=== PATIENT | male | born 1980 | race Caucasian/White ===

== ENCOUNTER → 2017-08-31 | Outpatient (REF) | payer OTHER ==
[2017-08-31 21:14] LABS: ALBUMIN 4.3 GM/DL (3.2-5.2); ALKALINE PHOSPHATASE 163 U/L (45-117); ALT/SGPT 60 U/L (12-78); ANION GAP 6 MEQ/L (8-16); AST/SGOT 27 U/L (7-37); BILIRUBIN,TOTAL 0.3 MG/DL (0.2-1.0); BLOOD UREA NITROGEN 10 MG/DL (7-18); CARBON DIOXIDE LEVEL 27 MEQ/L (21-32); CHLORIDE LEVEL 108 MEQ/L (98-107); CHOLESTEROL LEVEL 226 MG/DL (<200); CHOLESTEROL RISK RATIO 5.022 (<5); CREATININE FOR GFR 0.95 MG/DL (0.70-1.30); ESTIMATED AVERAGE GLUCOSE 123 MG/DL (60-110); GLOMERULAR FILTRATION RATE > 60.0 (>60); GLUCOSE, FASTING 109 MG/DL (70-100); HDL CHOLESTEROL 45 MG/DL (>40); HEMOGLOBIN A1c 5.9 %; LDL CHOLESTEROL 150.6 MG/DL (<100); NON-HDL-C 181 MG/DL; POTASSIUM SERUM 4.2 MEQ/L (3.5-5.1); SODIUM LEVEL 141 MEQ/L (136-145); TOTAL PROTEIN 7.6 GM/DL (6.4-8.2); TRIGLYCERIDES LEVEL 152 MG/DL (<150)
[2017-08-31 21:26] LABS: MALB URINE SIEMENS 6.3 MG/L; MAU/CREAT RATIO 4.3 MCG/MG (0.0-30.0)
== END ==
LOC: M SFHCADAM 15:54
DX: E78.4 Other hyperlipidemia (principal); R73.01 Impaired fasting glucose; I10 Essential (primary) hypertension
CPT/HCPCS: 83036

== ENCOUNTER → 2018-12-28 | Outpatient (REF) | payer OTHER ==
[~2018-12-28] MED LIST: AMOX500C PO; ASPI81TA85 PO; ATEN50TA2 PO; ATOR1TAB21 PO; BACL1TAB9 PO; CRES5TAB PO; DOXY100C PO; FLEX10TA2 PO; FLON0.054; GABA-845 PO; GABA300C2 PO; HYDR-2808 PO; HYDR-3713 PO; LIDO1DIS2 TD; LISI5TAB PO; LORA10TA2 PO; MOBI15TA PO; NAPR500T2 PO; NEUR400C PO; NEUR600T PO; NICO21DI6 TD; NORCOBULK PO; OMEP40CA2 PO; OSEL75CA PO; PAXI20TA3 PO; PAXI40TA2 PO; PRED20TA PO; PRED20TAB PO; QUIN200T PO; QUININE PO; RANI1TAB17 PO; REQU1TAB14 PO; ROPI0.5T PO; ROPI25TA PO; SOMA350T PO; TRAM100T13 PO; TRAM37.5 PO; TRAZ50TA2 PO; TYLE325T5 PO; VENL37CA PO; VICO5TAB17 PO; VITA100037 PO; ZANA4TAB PO; ZETI10TA21 PO; ZONE1CAP PO; ZONI50CA3 PO; ZYRT10CA PO; [UNRECOGNIZED DRUG - CODE] XX; motrin PO
== END ==
LOC: M LAB REF 12:14
PROVIDERS: ATTEND Physician Assistant Medical
DX: J02.9 Acute pharyngitis, unspecified (principal)

== ENCOUNTER → 2019-11-22 | Outpatient (REF) | payer OTHER ==
[~2019-11-22] MED LIST changes: +ZONI50CA11 PO; -ZONI50CA3 PO
[2019-11-22 17:03] LABS: HEMATOCRIT 49.5 % (42.0-52.0); MEAN CORPUSCULAR HEMOGLOBIN 33.9 pg (27.0-33.0); MEAN CORPUSCULAR HGB CONC 34.3 g/dl (32.0-36.5); MEAN CORPUSCULAR VOLUME 98.6 fl (80.0-96.0); PLATELET COUNT, AUTOMATED 274 10^3/uL (150-450); RED BLOOD COUNT 5.02 10^6/uL (4.30-6.10); WHITE BLOOD COUNT 6.6 10^3/uL (4.0-10.0)
[2019-11-22 17:13] LABS: ALBUMIN 4.1 GM/DL (3.2-5.2); ALT/SGPT 71 U/L (12-78); BILIRUBIN,TOTAL 0.2 MG/DL (0.2-1.0); BLOOD UREA NITROGEN 13 MG/DL (7-18); CALCIUM LEVEL 9.2 MG/DL (8.5-10.1); CARBON DIOXIDE LEVEL 28 MEQ/L (21-32); CHLORIDE LEVEL 106 MEQ/L (98-107); CHOLESTEROL LEVEL 229 MG/DL (<200); CHOLESTEROL RISK RATIO 4.673 (<5); CREATININE FOR GFR 1.02 MG/DL (0.70-1.30); FREE T4 0.99 NG/DL (0.76-1.46); GLOMERULAR FILTRATION RATE > 60.0 (>60); GLUCOSE, FASTING 98 MG/DL (70-100); HDL CHOLESTEROL 49 MG/DL (>40); LDL CHOLESTEROL 152 MG/DL (<100); NON-HDL-C 180 MG/DL; POTASSIUM SERUM 4.7 MEQ/L (3.5-5.1); SODIUM LEVEL 140 MEQ/L (136-145); TOTAL PROTEIN 7.4 GM/DL (6.4-8.2); TRIGLYCERIDES LEVEL 141 MG/DL (<150)
[2019-11-22 17:17] LABS: TOTAL 25(OH) VITAMIN D 17.2 NG/ML (30.0-100.0)
[2019-11-22 17:23] LABS: HEMOGLOBIN A1c 5.4 %
== END ==
LOC: M SFHCADAM 12:08
PROVIDERS: ATTEND Physician Assistant
DX: K21.9 Gastro-esophageal reflux disease without esophagitis (principal); G43.009 Migraine without aura, not intractable, without status migrainosus; F17.210 Nicotine dependence, cigarettes, uncomplicated; R76.8 Other specified abnormal immunological findings in serum; E55.9 Vitamin D deficiency, unspecified; R73.09 Other abnormal glucose

== ENCOUNTER 2020-09-28 16:02 | Emergency (ER) | payer OTHER ==
[~2020-09-28] VITALS: Ht 177.8 cm; Wt 98.6 kg
[~2020-09-28 16:02] MED LIST changes: +ASPI81TA86 PO
--- OUTSIDE RECORDS SUMMARY | 2020-09-28 16:09 | CCD ---
Author Author [facility] Organization [facility] Address Unknown Phone Unavailable Care Team Providers Care Senior Marketing Data Analyst Name Role Phone Maring, José PA Unavailable Unavailable Maring, José PA Unavailable Unavailable Maring, Joés PA Unavailable Unavailable Maring, José PA Unavailable Unavailable Maring, José PA Unavailable Unavailable Maring, José PA Unavailable Unavailable Maring, José PA Unavailable Unavailable Maring, José PA Unavailable Unavailable Maring, José PA Unavailable Unavailable Maring, José PA Unavailable Unavailable Maring, José PA Unavailable Unavailable Maring, José PA Unavailable Unavailable Maring, José PA Unavailable Unavailable Maring, José PA Unavailable Unavailable LETTIERE, A BELLA PA Unavailable Unavailable LETTIERE, A BELLA PA Unavailable Unavailable LETTIERE, A BELLA PA Unavailable Unavailable LETTIERE, A BELLA PA Unavailable Unavailable LETTIERE, A BELLA PA Unavailable Unavailable LETTIERE, A BELLA PA Unavailable Unavailable LETTIERE, A BELLA PA Unavailable Unavailable LETTIERE, A BELLA PA Unavailable Unavailable LETTIERE, A BELLA PA Unavailable Unavailable LETTIERE, A BELLA PA Unavailable Unavailable LETTIERE, A BELLA PA Unavailable Unavailable LETTIERE, A BELLA PA Unavailable Unavailable LETTIERE, A BELLA PA Unavailable Unavailable LETTIERE, A BELLA PA Unavailable Unavailable LETTIERE, A BELLA PA Unavailable Unavailable LETTIERE, A BELLA PA Unavailable Unavailable LETTIERE, A BELLA PA Unavailable Unavailable LETTIERE, A BELLA PA Unavailable Unavailable LETTIERE, A BELLA PA Unavailable Unavailable LETTIERE, A BELLA PA Unavailable Unavailable LETTIERE, A BELLA PA Unavailable Unavailable LETTIERE, A BELLA PA Unavailable Unavailable LETTIERE, A BELLA PA Unavailable Unavailable LETTIERE, A BELLA PA Unavailable Unavailable LETTIERE, A BELLA PA Unavailable Unavailable LETTIERE, A BELLA PA Unavailable Unavailable LETTIERE, A BELLA PA Unavailable Unavailable LETTIERE, A BELLA PA Unavailable Unavailable LETTIERE, A BELLA PA Unavailable Unavailable Re-disclosure Warning The records that you are about to access may contain information from federally-assisted alcohol or drug abuse programs. If such information is present, then the following federally mandated warning applies: This information has been disclosed to you from records protected by federal confidentiality rules (42 CFR part 2). The federal rules prohibit you from making any further disclosure of this information unless further disclosure is expressly permitted by the written consent of the person to whom it pertains or as otherwise permitted by 42 CFR part 2. A general authorization for the release of medical or other information is NOT sufficient for this purpose. The Federal rules restrict any use of the information to criminally investigate or prosecute any alcohol or drug abuse patient.The records that you are about to access may contain highly sensitive health information, the redisclosure of which is protected by Article 27-F of the [facility] Public Health law. If you continue you may have access to information: Regarding HIV / AIDS; Provided by facilities licensed or operated by the [facility] Office of Mental Health; or Provided by the [facility] Office for People With Developmental Disabilities. If such information is present, then the following [facility] mandated warning applies: This information has been disclosed to you from confidential records which are protected by state law. State law prohibits you from making any further disclosure of this information without the specific written consent of the person to whom it pertains, or as otherwise permitted by law. Any unauthorized further disclosure in violation of state law may result in a fine or fdc sentence or both. A general authorization for the release of medical or other information is NOT sufficient authorization for further disc losure. Allergies and Adverse Reactions Type Description Substance Reaction Status Data Source(s ) Drug allergy Keflex Cephalexin Nausea/Vomiting Active eCW1 ( [facility]) metal metal metal Rash Active eCW1 ([facility]) Family History Family Member Name Family Member Gender Family Member Status Date o f Status Description Data Source(s) Unknown Unknown Problem MEDENT ([facility]) Unknown Female Diagnosis 04/20/2017 12:00:00 AM EDT NextGen ([facility]) Unknown Female Diagnosis 04/20/2017 12:00:00 AM EDT NextGen ([facility]) Unknown Female Diagnosis 11/21/2016 12:00:00 AM EDT NextGen ([facility]) Unknown Female Diagnosis 11/21/2016 12:00:00 AM EDT NextGen ([facility]) Unknown Male Problem MEDENT ([facility] () Unknown Unknown Problem MEDENT ([facility] ) Unknown Unknown Problem MEDENT ([facility], ) Unknown Unknown Problem MEDENT ([facility], ) Unknown Unknown Problem MEDENT ([facility], ) Unknown Unknown Problem MEDENT ([facility], ) Unknown Unknown Problem MEDENT ([facility], ) Encounters Encounter Providers Location Date Indications Data Source(s ) Outpatient Attender: José JACOME 09/19/19 06:20:57 PM EST - 09/19/2020 06:51:56 PM EST DocuTap ([facility] ) Outpatient Attender: BELLA alicea 08/06/2020 07:10:00 AM EST MEDENT ([facility]) Unknown [address] [facility] [place] [address] 02/17/2020 12:00:00 AM EDT [facility] [place] [place] [address] [facility] [place] [address] 12/20/2019 12:00:00 AM EDT [facility]CW[facility]) [facility] [place] [address] [facility] [place] [address] 11/22/2019 12:00:00 AM EDT eCW1 [facility]) [facility] [place] [address] [facility] [place] [address] 11/18/2019 12:00:00 AM EDT eCW1 ([facility]) [facility] [address] [facility] [place] [address] 10/30/2019 12:00:00 AM EDT eCW1 ([facility]) Medications Medication Brand Name Start Date Product Form Dose Route Admi nistrative Instructions Pharmacy Instructions Status Indications Reaction Description Data Source(s) 800 mg 09/20/2020 12:00:00 AM EST tablet 30 TAKE ONE TABLET BY MOUTH THREE TIMES A DAY FOR 10 DAYS TAKE ONE TABLET BY MOUTH THREE TIMES A DAY FOR 10 DAYS SOLD: 09/20/2020 [facility] Amoxicillin 875 MG / Clavulanate 125 MG Oral Tablet Am oxicillin/Clavulanate Potassium 08/06/2020 12:00:00 AM EST ORAL active MEDENT ([facility]) No Active Medications 08/06/2020 12:00:00 AM EST completed MEDENT ([facility]) 100 mg 11/23/2019 12:00:00 AM EDT capsule 60 TAKE ONE CAPSULE BY MOUTH TWICE A DAY TAKE ONE CAPSULE BY MOUTH TWICE A DAY SOLD: 11/24/2019 [facility] CPAP mask UNK 11/22/2019 12:00:00 AM EDT active CPAP mask eCW1 ([facility]) 50 mcg/actuation 11/22/2019 12:00:00 AM EDT spray,suspension 16 SPRAY 1 SPRAY IN EACH NOSTRIL ONCE DAILY (1 BOX WILL LAST 60 DAYS) SPRAY 1 SPRAY IN EACH NOSTRIL ONCE DAILY (1 BOX WILL LAST 60 DAYS) SOLD: 11/24/2019 [facility] CPAP mask UNK 11/22/2019 12:00:00 AM EDT active as directed eCW1 ([facility]) CPAP mask UNK 11/22/2019 12:00:00 AM EDT active as directed eCW1 ([facility]) CPAP mask UNK 11/07/2019 12:00:00 AM EDT active CPAP mask eCW1 ([facility]) CPAP mask UNK 11/07/2019 12:00:00 AM EDT active as directed eCW1 ([facility]) CPAP Machine UNK 11/07/2019 12:00:00 AM EDT activ e as directed eCW1 ([facility]) CPAP Machine UNK 11/07/2019 12:00:00 AM EDT activ e as directed eCW1 ([facility]) CPAP mask UNK 11/07/2019 12:00:00 AM EDT active as directed eCW1 ([facility]) CPAP Machine UNK 11/07/2019 12:00:00 AM EDT activ e as directed eCW1 ([facility]) CPAP Machine UNK 11/07/2019 12:00:00 AM EDT activ e CPAP Machine eCW1 ([facility]) Insurance Providers Payer name Policy type / Coverage type Policy ID Covered constitution party ID Covered constitution party's relationship to mccracken Policy Mccracken Plan Information UN COMMUNITY PLAN MCDO [id number] SP [id number] [place] [employer]. [id number] Self [id number] United [employer] [facility] Maintenance Organization (HMO) [id number] Self [id number] [employer] (HMO) [id number] Self [id number] [employer] Hmo Commercial [id number] Self [id number] [employer] Elise/MCR Health Maintenance Organization (HMO) [id number] Self [id number] [employer] Hmo Commercial [id number] Self [id number] [employer] Hmo Commercial [id number] Self [id number] [employer] Elise/MCR Health Maintenance Organization (HMO) [id number] Self [id number] United [employer] Maintenance Organization (HMO) [id number] Self [id number] United [employer]Community [employer] Maintenance Organization (HMO) [id number] Self [id number] [facility] I [id number] Self [id number] [employer] Elise/MCR Health Maintenance Organization (HMO) Self UNHC COMMUNITY PLAN MCDHMO [id number] SP [id number] United [employer]Community [employer] Maintenance Organization (HMO) Self BRITTNYE CLAIM ADMIN WORK O [id number] S [id number] [place] [employer](MCAID) O [id number] S [id number] BRITTNEY CLAIM ADMIN WORK COMP [id number] SP [id number] BRITTNEY CLAIM ADMIN WORK COMP [id number] SP [id number] BRITTNEY CLAIM ADMIN WORK COMP [id number] SP [id number] UNHC COMMUNITY PLAN MCDHMO [id number] SP [id number] BRITTNEY CLAIM ADMIN WORK COMP UNKNOWN SP UNKNOWN MARGARITO CLAIMS ADMIN NCA WC W [id number] Empl [id number] [facility] [id number] SP [id number] BRITTNEY CLAIM ADMIN WORK COMP [id number] SP [id number] BRITTNEY CLAIM ADMIN WORK COMP [id number] SP [id number] [employer] P [id number] S [id number] [facility] H O [id number] S [id number] BRITTNEY CLAIM ADMIN WORK P [id number] S [id number] BRITTNEY CLAIM ADMIN WORK COMP -- SP -- BRITTNEY CLAIM ADMIN WORK COMP UNAVAILABLE SP UNAVAILABLE [facility] I [id number] Self [id number] [employer] I [id number] Self [id number] BRITTNEY CLAIM ADMIN WORK P [id number] S [id number] [employer] P [id number] S [id number] BRITTNEY CLAIMS [id number] SP [id number] BLUE CROSS JOSUE PLAN [id number] SP [id number] NCA COMP [id number] SP [id number] EXCE[employer] BCBS S [id number] S [id number] OTHER WORKERS COMPENSATI P [id number] S [id number] BLUE CROSS BLUE SHIELD-CLINIC [id number] MEDICAID [id number] SP [id number] BRITTNEY CLAIM ADMIN WORK COMP [id number] SP [id number] Problems, Conditions, and Diagnoses Code Display Name Description Problem Type Effective Dates Data Source(s) G47.33 [id number] MICHAEL (obstructive sleep apnea) Problem 11/22/2019 12:00:00 AM EDT eCW1 ([facility]) G43.009 [id number] Migraine without aur a and without status migrainosus, not intractable Problem 11/22/2019 12:00:00 AM EDT eCW1 ([facility]) J30.1 [id number] Seasonal allergic rhinitis due to pollen Problem 11/22/2019 12:00:00 AM EDT eCW1 ([facility]) J30.89 [id number] Non-seasonal allergic rhinitis, unspecifi ed trigger Problem 11/22/2019 12:00:00 AM EDT eCW1 ([facility]) G47.33 [id number] Obstructive sleep apnea (adult) (pediatri c) Problem 11/22/2019 12:00:00 AM EDT eCW1 ([facility]) 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 Problem 11/22/2019 12:00:00 AM EDT eCW1 ([facility]) G43.009 [id number] Migraine without aur a and without status migrainosus, not intractable Problem 11/22/2019 12:00:00 AM EDT eCW1 ([facility]) J30.1 73716601 Seasonal allergic rhinitis due to pollen Problem 11/22/2019 12:00:00 AM EDT eCW1 ([facility]) J30.89 83040405 Non-seasonal allergic rhinitis, unspecifi ed trigger Problem 11/22/2019 12:00:00 AM EDT eCW1 ([facility]) G47.33 [id number] Obstructive sleep apnea (adult) (pediatri c) Problem 11/22/2019 12:00:00 AM EDT eCW1 ([facility]) Z99.89 [id number] Dependence on other enabling machines and devices Problem 11/22/2019 12:00:00 AM EDT eCW1 ([facility]) Surgeries/Procedures Procedure Description Date Indications Data Source(s) BEHAV CHNG SMOKING 3-10 MIN 11/22/2019 12:00:00 AM EDT eCW1 ([facility]) Results ID Date Data Source [id number] 08/06/2020 12:00:00 AM EST [facility] Name Value Range Interpretation Code Description Data Rosalia rce(s) Supporting Document(s) SARS coronavirus 2 Ag Negative [facility] This lab was ordered by [facility] and reported by [facility]. ID Date Data Source VITAMIN D 25-HYDROXY 11/22/2019 12:00:00 AM EDT eCW1 ([facility] Name Value Range Interpretation Code Description Data Rosalia rce(s) Supporting Document(s) 17.2 30.0-100.0 TOTAL 25(OH) VITAMIN D eC W1 ([facility]) ID Date Data Source [id number] 11/22/2019 12:00:00 AM EDT eCW1 ([facility]) Name Value Range Interpretation Code Description Data Rosalia rce(s) Supporting Document(s) Hemoglobin A1c/Hemoglobin.total in Blood 5.4 HEMOGLOBIN A1c eCW1 ([facility]) ID Date Data Source FREE T4 & TSH PANEL 11/22/2019 12:00:00 AM EDT eCW1 ([facility]) Name Value Range Interpretation Code Description Data Rosalia rce(s) Supporting Document(s) 1.950 0.358-3.740 THYROID STIMULATING HORM ONE eCW1 ([facility]) 0.99 0.76-1.46 FREE T4 eCW1 ([facility]) ID Date Data Source Comprehensive Metabolic Profile (CMP) 11/22/2019 12:00:00 AM EDT eCW1 ([facility]) Name Value Range Interpretation Code Description Data Rosalia rce(s) Supporting Document(s) 13 7-18 BLOOD UREA NITROGEN eCW1 ([facility]) 98 70-100 GLUCOSE, FASTING eCW1 ([facility]) 1.02 0.70-1.30 CREATININE FOR GFR eCW1 ([facility]) > 60.0 >60 GLOMERULAR FILTRATION RATE eCW 1 ([facility]) 4.7 3.5-5.1 POTASSIUM SERUM eCW1 ([facility]) 140 136-145 SODIUM LEVEL eCW1 ([facility]) 28 21-32 CARBON DIOXIDE LEVEL eCW1 ([facility]) 106 98-107 CHLORIDE LEVEL eCW1 ([facility]) 28 7-37 AST/SGOT eCW1 ([facility]) 108 45-117 ALKALINE PHOSPHATASE eCW1 ([facility]) 71 12-78 ALT/SGPT eCW1 ([facility]) 9.2 8.5-10.1 CALCIUM LEVEL eCW1 ([facility]) 4.1 3.2-5.2 ALBUMIN eCW1 ([facility]) 7.4 6.4-8.2 TOTAL PROTEIN eCW1 ([facility]) 0.2 0.2-1.0 BILIRUBIN,TOTAL eCW1 ([facility]) 1.24 1.00-1.93 ALBUMIN/GLOBULIN RATIO eCW1 ([facility]) ID Date Data Source CBC - Complete Blood Count 11/22/2019 12:00:00 AM EDT eCW1 ( [facility]) Name Value Range Interpretation Code Description Data Rosalia rce(s) Supporting Document(s) 6.6 4.0-10.0 WHITE BLOOD COUNT eCW1 ([facility]) 5.02 4.30-6.10 RED BLOOD COUNT eCW1 ([facility]) 98.6 80.0-96.0 MEAN CORPUSCULAR VOLUME e CW1 ([facility]) 17.0 13.5-17.5 HEMOGLOBIN eCW1 ([facility]) 49.5 42.0-52.0 HEMATOCRIT eCW1 ([facility]) 33.9 27.0-33.0 MEAN CORPUSCULAR HEMOGLOB IN eCW1 ([facility]) 34.3 32.0-36.5 MEAN CORPUSCULAR HGB CONC eCW1 ([facility]) 11.9 11.5-14.5 RED CELL DISTRIBUTION WID TH eCW1 ([facility]) 274 150-450 PLATELET COUNT, AUTOMATED eCW1 ([facility]) Procedure Social History Code Duration Value Status Description Data Source(s ) Smoking 11/22/2019 12:00:00 AM EDT Current Smoker completed Curre nt Smoker eCW1 ([facility]) Vital Signs ID Date Data Source UNK Name Value Range Interpretation Code Description Data Source(s) Body mass index (BMI) [Ratio] 31.7 kg/m2 31.7 k g/m2 MEDENT ([facility]) Body height 69 [in_i] 69 [in_i] MEDENT ([facility]) 5'9" Body weight 215.00 [lb_av] 215.00 [lb_av] MEDEN T ([facility], [facility]) Body temperature 98.1 [degF] 98.1 [degF] MEDENT ([facility]) Oxygen saturation in Arterial blood by Pulse oximetry 97 % 97 % MEDENT ([facility]) Respiratory rate 12 /min 12 /min MEDENT ( [facility]) Heart rate 112 /min 112 /min MEDENT ([facility]) Diastolic blood pressure 122 mm[Hg] 122 mm[Hg] MEDENT ([facility]) Systolic blood pressure 158 mm[Hg] 158 mm[Hg] M EDENT ([facility], [facility]) Diastolic blood pressure 80 mm[Hg] 80 mm[Hg] eCW1 ([facility]) Systolic blood pressure 130 mm[Hg] 130 mm[Hg] e CW1 ([facility]) Body temperature 96.5 [degF] 96.5 [degF] eCW1 ( [facility]) Respiratory rate 18 /min 18 /min eCW1 ([facility]) Heart rate 125 /min 125 /min eCW1 ([facility]) Body mass index (BMI) [Ratio] 32.89 kg/m2 32.89 kg/m2 eCW1 ([facility]) Body height 67 [in_us] 67 [in_us] eCW1 ([facility]) Body weight Measured 210 [lb_av] 210 [lb_av] eC W1 ([facility]) Patient Treatment Plan of Care Planned Activity Planned Date Details Description Data Source (s) CPAP mask 11/22/2019 12:00:00 AM EDT e CW1 ([facility]) CPAP mask 11/22/2019 12:00:00 AM EDT e CW1 ([facility]) CPAP mask 11/22/2019 12:00:00 AM EDT e CW1 ([facility]) CPAP Machine 11/07/2019 12:00:00 AM EDT e CW1 ([facility]) CPAP mask 11/07/2019 12:00:00 AM EDT e CW1 ([facility]) CPAP Machine 11/07/2019 12:00:00 AM EDT e CW1 ([facility])
--- OUTSIDE RECORDS SUMMARY | 2020-09-28 16:09 | CCD | Continuity of Care Document ---
Author Author [facility] [place] Organization Unknown Address [address] [place] [address] [place] [address] Phone [phone] Care Team Providers Care Retread Operator Name Role Phone [facility] AUTM [phone] [facility] AUTM [phone] Problems Description No Information Available Social History Type Date Description Comments Sex Unknown Tobacco Use Start: Unknown Patient is a current cigarette smoker, smokes every day ETOH Use Rarely consumes alcohol Tobacco Use Start: Unknown Patient is a current smoker, smo kes every day Smoking Status Reviewed: 08/06/20 Patient is a current smoker, smokes every day Allergies, Adverse Reactions, Alerts Active Allergies Reaction Severity Comments Date Keflex 07/28/2015 Metals 07/28/2015 Medications Active Medications SIG Qnty Indications Ordering Provide r Date Amoxicillin/Clavulanate Potassium 875-125mg Tablets take one tablet by mouth twice a day x 10 days 20tabs H 65.03 Avinash Thacker JR., M.D. 08/06/2020 History Medications No Active Medications Unknown - 08/06/2020 Immunizations Description No Information Available Vital Signs Date Vital Result Comment 08/06/2020 8:12am BP Systolic 158 mmHg BP Diastolic 122 mmHg Heart Rate 112 /min Respiratory Rate 12 /min O2 % BldC Oximetry 97 % Body Temperature 98.1 F Weight 215.00 lb Height 69 inches 5'9" BMI (Body Mass Index) 31.7 kg/m2 Pain Level 4 01/29/2019 3:56pm BP Systolic 133 mmHg BP Diastolic 89 mmHg Heart Rate 134 /min Respiratory Rate 20 /min O2 % BldC Oximetry 99 % Body Temperature 100.9 F Weight 230.00 lb Height 69 inches 5'9" BMI (Body Mass Index) 34.0 kg/m2 Pain Level 4 Results Description No Information Available Procedures Description No Information Available Medical Devices Description No Information Available Encounters Type Date Location Provider Dx Diagnosis Office Visit 08/06/2020 8:10a Main Office AYAZ Arnold H65 .03 Acute serous otitis media, bilateral R03.0 Elevated blood-pressure read ing, w/o diagnosis of htn Z20.828 Contact w and exposure to ot h viral communicable diseases Assessments Date Code Description Provider 08/06/2020 H65.03 Acute serous otitis media, bilat eral AYAZ Arnold 08/06/2020 R03.0 Elevated blood-press ure reading, without diagnosis of hypertension AYAZ Arnold 08/06/2020 Z20.828 Contact with and (ness spected) exposure to other viral communicable diseases AYAZ Arnold Plan of Treatment No Information Available Functional Status Description No Information Available Mental Status Description No Information Available Referrals Description No Information Available
--- OUTSIDE RECORDS SUMMARY | 2020-09-28 16:09 | CCD | Continuity of Care Document ---
Author Author [facility] [place] Organization Unknown Address [address] [place] [address] [place] [address] Phone [phone] Care Team Providers Care Civil Designer Name Role Phone [facility] AUTM [phone] [facility] AUTM [phone] Problems Description No Information Available Social History [...]
[2020-09-28 16:38] LABS: BASO # 0.1 10^3/uL (0.0-0.2); BASO % 1.2 % (0.0-1.0); EOS # 0.2 10^3/uL (0.0-0.5); EOS % 2.7 % (0.0-3.0); HEMOGLOBIN 16.1 g/dl (13.5-17.5); LYMPH # 2.5 10^3/uL (1.5-5.0); LYMPH % 28.4 % (24.0-44.0); MEAN CORPUSCULAR HGB CONC 34.3 g/dl (32.0-36.5); MEAN CORPUSCULAR VOLUME 99.4 fl (80.0-96.0); MONO # 0.7 10^3/uL (0.0-0.8); MONO % 8.1 % (2.0-8.0); NEUTROPHILS # 5.2 10^3/uL (1.5-8.5); NEUTROPHILS % 59.3 % (36.0-66.0); PLATELET COUNT, AUTOMATED 300 10^3/uL (150-450); RED BLOOD COUNT 4.73 10^6/uL (4.30-6.10); WHITE BLOOD COUNT 8.9 10^3/uL (4.0-10.0)
[2020-09-28] MEDS ORDERED: NITROGLYCERIN 0.4 MG SUBL TABLET SL STA (16:46)
[2020-09-28] MEDS ORDERED: ASPIRIN 81 MG CHEW TABLET PO ONE (17:00)
[2020-09-28 17:05] LABS: BLOOD UREA NITROGEN 11 MG/DL (7-18); CALCIUM LEVEL 9.2 MG/DL (8.5-10.1); CARBON DIOXIDE LEVEL 28 MEQ/L (21-32); CHLORIDE LEVEL 105 MEQ/L (98-107); CREATININE FOR GFR 0.84 MG/DL (0.70-1.30); GLOMERULAR FILTRATION RATE > 60.0 (>60); GLUCOSE, FASTING 88 MG/DL (70-100); SODIUM LEVEL 140 MEQ/L (136-145)
--- NOTE | 2020-09-28 17:07 | REP ---
INDICATION: CHEST PAIN. COMPARISON: 02/03/2014. TECHNIQUE: SINGLE PORTABLE AP VIEW OF THE CHEST WAS PERFORMED. FINDINGS: THERE IS NO ACUTE INFILTRATE OR PULMONARY EDEMA. LUNGS ARE CLEAR. HEART IS NOT SIGNIFICANTLY ENLARGED. MEDIASTINAL SILHOUETTE IS UNREMARKABLE. THE VISUALIZED OSSEOUS STRUCTURES ARE INTACT. IMPRESSION: NO ACUTE PULMONARY DISEASE. <Electronically signed by Jacinto Benedict > 09/28/20 [id number]
[2020-09-28 17:10] LABS: CK-MB VALUE MASS 1.1 NG/ML (<3.6); CPK CREATINE PHOSPHOKINASE 114 U/L (39-308); MB/CK RELATIVE INDEX 0.96 (< OR =4); TROPONIN I < 0.02 NG/ML (< 0.10)
--- OUTSIDE RECORDS SUMMARY | 2020-09-28 17:16 | CCD ---
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 If you continue you may have access to information: Regarding HIV / AIDS; Provided by facilities licensed or operated by the [facility] Office of Mental Health; or Provided by the [facility] Office for People With Developmental Disabilities. If such information is present, then the following [facility] mandated warning applies: This information has [...] law may result in a fine or retirement sentence or both. A general authorization for the release of medical or other information is NOT sufficient authorization for further disc losure. Allergies and Adverse Reactions Type Description Substance Reaction Status Data Source(s ) Drug allergy Keflex Cephalexin Nausea/Vomiting Active eCW1 ( [facility]) metal metal metal Rash Active eCW1 ([facility]) Family History Family Member Name Family Member Gender Family Member Status Date o f Status Description Data Source(s) Unknown Unknown Problem MEDENT ([facility] Unknown Female Diagnosis 04/20/2017 12:00:00 AM EDT NextGen ([facility]) Unknown Female Diagnosis 04/20/2017 12:00:00 AM EDT NextGen ([facility]) Unknown Female Diagnosis 11/21/2016 12:00:00 AM EDT NextGen ([facility]) Unknown Female Diagnosis 11/21/2016 12:00:00 AM EDT NextGen ([facility]) Unknown Male Problem MEDENT ([facility] () Unknown Unknown Problem MEDENT ([facility] ) Unknown Unknown Problem MEDENT ([facility], ) Unknown Unknown Problem MEDENT ([facility], ) Unknown Unknown Problem MEDENT ([facility], ) Unknown Unknown Problem MEDENT ([facility], ) Unknown Unknown Problem MEDENT ([facility], ) Encounters Encounter Providers Location Date Indications Data Source(s ) Outpatient Attender: José JACOME 09/19/19 06:20:57 PM EST - 09/19/2020 06:51:56 PM EST DocuTap ([facility] ) Outpatient Attender: BELLA alicea 08/06/2020 07:10:00 AM EST MEDENT ([facility] [place] [address] [place] [address] 02/17/2020 12:00:00 AM EDT eCW1 ([facility]) [facility] [address] [facility] [place] [address] 12/20/2019 12:00:00 AM EDT eCW1 ([facility]) [facility] [address] [facility] [place] [address] 11/22/2019 12:00:00 AM EDT eCW1 ([facility]) [facility] [address] [facility] [place] [address] 11/18/2019 12:00:00 AM EDT eCW1 ([facility]) [facility] [place] [address] [facility] [place] [address] 10/30/2019 12:00:00 AM EDT eCW1 ([facility]) Medications Medication Brand Name Start Date Product Form Dose Route Admi nistrative Instructions Pharmacy Instructions Status Indications Reaction Description Data Source(s) 800 mg 09/20/2020 12:00:00 AM EST tablet 30 TAKE ONE TABLET BY MOUTH THREE TIMES A DAY FOR 10 DAYS TAKE ONE TABLET BY MOUTH THREE TIMES A DAY FOR 10 DAYS SOLD: 09/20/2020 [facility] Amoxicillin 875 MG / Clavulanate 125 MG Oral Tablet Am oxicillin/Clavulanate Potassium 08/06/2020 12:00:00 AM EST ORAL active MEDENT ([facility]) No Active Medications 08/06/2020 12:00:00 AM EST completed MEDENT ([facility]) 100 mg 11/23/2019 12:00:00 AM EDT capsule 60 TAKE ONE CAPSULE BY MOUTH TWICE A DAY TAKE ONE CAPSULE BY MOUTH TWICE A DAY SOLD: 11/24/2019 [facility] CPAP mask UNK 11/22/2019 12:00:00 AM EDT active CPAP mask eCW1 ([facility]) 50 mcg/actuation 11/22/2019 12:00:00 AM EDT spray,suspension 16 SPRAY 1 SPRAY IN EACH NOSTRIL ONCE DAILY (1 BOX WILL LAST 60 DAYS) SPRAY 1 SPRAY IN EACH NOSTRIL ONCE DAILY (1 BOX WILL LAST 60 DAYS) SOLD: 11/24/2019 [facility] CPAP mask UNK 11/22/2019 12:00:00 AM EDT active as directed eCW1 ([facility]) CPAP mask UNK 11/22/2019 12:00:00 AM EDT active as directed eCW1 ([facility]) CPAP mask UNK 11/07/2019 12:00:00 AM EDT active CPAP mask eCW1 ([facility]) CPAP mask UNK 11/07/2019 12:00:00 AM EDT active as directed eCW1 ([facility]) CPAP Machine UNK 11/07/2019 12:00:00 AM EDT activ e as directed eCW1 ([facility]) CPAP Machine UNK 11/07/2019 12:00:00 AM EDT activ e as directed eCW1 ([facility]) CPAP mask UNK 11/07/2019 12:00:00 AM EDT active as directed eCW1 ([facility]) CPAP Machine UNK 11/07/2019 12:00:00 AM EDT activ e as directed eCW1 ([facility]) CPAP Machine UNK 11/07/2019 12:00:00 AM EDT activ e CPAP Machine eCW1 ([facility]) Insurance Providers Payer name Policy type / Coverage type Policy ID Covered libertarian ID Covered libertarian's relationship to mccracken Policy Mccracken Plan Information [employer] COMMUNITY PLAN MCDHMO [id number] SP [id number] [employer] [id number] Self [id number] [employer] (HMO) [id number] Self [id number] [employer] (HMO) [id number] Self [id number] [employer] Hmo Commercial [id number] Self [id number] [employer] Elise/MCR Health Maintenance Organization (HMO) [id number] Self [id number] [employer] Hmo Commercial [id number] Self [id number] [employer] Hmo Commercial [id number] Self [id number] [employer] Elise/MCR Health Maintenance Organization (HMO) [id number] Self [id number] [employer] (HMO) [id number] Self [id number] [employer] (HMO) [id number] Self [id number] [facility] I [id number] Self [id number] [employer] Elise/MCR Health Maintenance Organization (HMO) Self [employer] COMMUNITY PLAN MCDHMO [id number] SP [id number] [employer] (HMO) Self BRITTNEY CLAIM ADMIN WORK O [id number] S [id number] [employer](MCAID) O [id number] S [id number] BRITTNEY CLAIM ADMIN WORK COMP [id number] SP [id number] BRITTNEY CLAIM ADMIN WORK COMP [id number] SP [id number] BRITTNEY CLAIM ADMIN WORK COMP [id number] SP [id number] UN COMMUNITY PLAN MCDHMO [id number] SP [id number] BRITTNEY CLAIM ADMIN WORK COMP UNKNOWN SP UNKNOWN MARGARITO CLAIMS ADMIN NCA WC W [id number] Empl [id number] [facility] [id number] SP [id number] BRITTNEY CLAIM ADMIN WORK COMP [id number] SP [id number] BRITTNEY CLAIM ADMIN WORK COMP [id number] SP [id number] [employer] P [id number] S [id number] [facility] [id number] S [id number] BRITTNEY CLAIM ADMIN WORK P [id number] S [id number] BRITTNEY CLAIM ADMIN WORK COMP -- SP -- BRITTNEY CLAIM ADMIN WORK COMP UNAVAILABLE SP UNAVAILABLE [facility] I [id number] Self [id number] [employer] I [id number] Self [id number] BRITTNEY CLAIM ADMIN WORK P [id number] S [id number] [employer] P [id number] S [id number] BRITTNEY CLAIMS [id number] SP [id number] BLUE CROSS JOSUE PLAN [id number] SP [id number] NCA COMP [id number] SP [id number] [employer] BCBS S [id number] S [id number] OTHER WORKERS COMPENSATI P [id number] S [id number] BLUE CROSS BLUE [facility] [id number] 18 [id number] MEDICAID [id number] SP [id number] BRITTNEY CLAIM ADMIN WORK COMP [id number] SP [id number] Problems, Conditions, and Diagnoses Code Display Name Description Problem Type Effective Dates Data Source(s) G47.33 [id number] MICHAEL (obstructive sleep apnea) Problem 11/22/2019 12:00:00 AM EDT eCW1 ([facility]) G43.009 [id number] Migraine without aur a and without status migrainosus, not intractable Problem 11/22/2019 12:00:00 AM EDT eCW1 ([facility]) J30.1 [id number] Seasonal allergic rhinitis due to pollen Problem 11/22/2019 12:00:00 AM EDT eCW1 ([facility]) J30.89 [id number] Non-seasonal allergic rhinitis, unspecifi ed trigger Problem 11/22/2019 12:00:00 AM EDT eCW1 ([facility]) G47.33 [id number] Obstructive sleep apnea (adult) (pediatri c) Problem 11/22/2019 12:00:00 AM EDT eCW1 ([facility]) Z99.89 [id number] Dependence on other enabling machines and devices Problem 11/22/2019 12:00:00 AM EDT eCW1 ([facility]) G43.009 139099003 Migraine without aur a and without status migrainosus, not intractable Problem 11/22/2019 12:00:00 AM EDT eCW1 ([facility]) J30.1 57270429 Seasonal allergic rhinitis due to pollen Problem 11/22/2019 12:00:00 AM EDT eCW1 ([facility]) J30.89 [id number] Non-seasonal allergic rhinitis, unspecifi ed trigger Problem 11/22/2019 12:00:00 AM EDT eCW1 ([facility]) G47.33 [id number] Obstructive sleep apnea (adult) (pediatri c) Problem 11/22/2019 12:00:00 AM EDT eCW1 ([facility]) Z99.89 [id number] Dependence on other enabling machines and devices Problem 11/22/2019 12:00:00 AM EDT eCW1 ([facility]) Surgeries/Procedures Procedure Description Date Indications Data Source(s) BEHAV CHNG SMOKING 3-10 MIN 11/22/2019 12:00:00 AM EDT eCW1 ([facility]) Results ID Date Data Source [id number] 08/06/2020 12:00:00 AM EST [facility] Name Value Range Interpretation Code Description Data Rosalia rce(s) Supporting Document(s) SARS coronavirus 2 Ag Negative [facility] This lab was ordered by [facility] and reported by [facility]. ID Date Data Source VITAMIN D 25-HYDROXY 11/22/2019 12:00:00 AM EDT eCW1 ([facility]) Name Value Range Interpretation Code Description Data Rosalia rce(s) Supporting Document(s) 17.2 30.0-100.0 TOTAL 25(OH) VITAMIN D eC W1 ([facility]) ID Date Data Source [id number] 11/22/2019 12:00:00 AM EDT eCW1 ([facility]) Name Value Range Interpretation Code Description Data Rosalia rce(s) Supporting Document(s) Hemoglobin A1c/Hemoglobin.total in Blood 5.4 HEMOGLOBIN A1c eCW1 ([facility]) ID Date Data Source FREE T4 & TSH PANEL 11/22/2019 12:00:00 AM EDT eCW1 ([facility]) Name Value Range Interpretation Code Description Data Rosalia rce(s) Supporting Document(s) 1.950 0.358-3.740 THYROID STIMULATING HORM ONE eCW1 ([facility]) 0.99 0.76-1.46 FREE T4 eCW1 ([facility]) ID Date Data Source Comprehensive Metabolic Profile (CMP) 11/22/2019 12:00:00 AM EDT eCW1 ([facility]) Name Value Range Interpretation Code Description Data Rosalia rce(s) Supporting Document(s) 13 7-18 BLOOD UREA NITROGEN eCW1 ([facility]) 98 70-100 GLUCOSE, FASTING eCW1 ([facility]) 1.02 0.70-1.30 CREATININE FOR GFR eCW1 ([facility]) > 60.0 >60 GLOMERULAR FILTRATION RATE eCW 1 ([facility]) 4.7 3.5-5.1 POTASSIUM SERUM eCW1 ([facility]) 140 136-145 SODIUM LEVEL eCW1 ([facility]) 28 21-32 CARBON DIOXIDE LEVEL eCW1 ([facility]) 106 98-107 CHLORIDE LEVEL eCW1 ([facility]) 28 7-37 AST/SGOT eCW1 ([facility]) 108 45-117 ALKALINE PHOSPHATASE eCW1 ([facility]) 71 12-78 ALT/SGPT eCW1 ([facility]) 9.2 8.5-10.1 CALCIUM LEVEL eCW1 ([facility]) 4.1 3.2-5.2 ALBUMIN eCW1 ([facility]) 7.4 6.4-8.2 TOTAL PROTEIN eCW1 ([facility]) 0.2 0.2-1.0 BILIRUBIN,TOTAL eCW1 ([facility]) 1.24 1.00-1.93 ALBUMIN/GLOBULIN RATIO eCW1 ([facility]) ID Date Data Source CBC - Complete Blood Count 11/22/2019 12:00:00 AM EDT eCW1 ( [facility]) Name Value Range Interpretation Code Description Data Rosalia rce(s) Supporting Document(s) 6.6 4.0-10.0 WHITE BLOOD COUNT eCW1 ([facility]) 5.02 4.30-6.10 RED BLOOD COUNT eCW1 ([facility]) 98.6 80.0-96.0 MEAN CORPUSCULAR VOLUME e CW1 ([facility]) 17.0 13.5-17.5 HEMOGLOBIN eCW1 ([facility]) 49.5 42.0-52.0 HEMATOCRIT eCW1 ([facility]) 33.9 27.0-33.0 MEAN CORPUSCULAR HEMOGLOB IN eCW1 ([facility]) 34.3 32.0-36.5 MEAN CORPUSCULAR HGB CONC eCW1 ([facility]) 11.9 11.5-14.5 RED CELL DISTRIBUTION WID TH eCW1 ([facility]) 274 150-450 PLATELET COUNT, AUTOMATED eCW1 ([facility]) Procedure Social History Code Duration Value Status Description Data Source(s ) Smoking 11/22/2019 12:00:00 AM EDT Current Smoker completed Curre nt Smoker eCW1 ([facility]) Vital Signs ID Date Data Source UNK Name Value Range Interpretation Code Description Data Source(s) Body mass index (BMI) [Ratio] 31.7 kg/m2 31.7 k g/m2 MEDENT ([facility]) Body height 69 [in_i] 69 [in_i] MEDENT ([facility]) 5'9" Body weight 215.00 [lb_av] 215.00 [lb_av] MEDEN T ([facility]) Body temperature 98.1 [degF] 98.1 [degF] MEDENT ([facility]) Oxygen saturation in Arterial blood by Pulse oximetry 97 % 97 % MEDENT ([facility]) Respiratory rate 12 /min 12 /min MEDENT ( [facility]) Heart rate 112 /min 112 /min MEDENT ([facility]) Diastolic blood pressure 122 mm[Hg] 122 mm[Hg] MEDENT ([facility]) Systolic blood pressure 158 mm[Hg] 158 mm[Hg] M EDENT ([facility]) Diastolic blood pressure 80 mm[Hg] 80 mm[Hg] eCW1 ([facility]) Systolic blood pressure 130 mm[Hg] 130 mm[Hg] e CW1 ([facility]) Body temperature 96.5 [degF] 96.5 [degF] eCW1 ( [facility]) Respiratory rate 18 /min 18 /min eCW1 ([facility]) Heart rate 125 /min 125 /min eCW1 ([facility]) Body mass index (BMI) [Ratio] 32.89 kg/m2 32.89 kg/m2 eCW1 ([facility]) Body height 67 [in_us] 67 [in_us] eCW1 ([facility]) Body weight Measured 210 [lb_av] 210 [lb_av] eC W1 ([facility]) Patient Treatment Plan of Care Planned Activity Planned Date Details Description Data Source (s) CPAP mask 11/22/2019 12:00:00 AM EDT e CW1 ([facility]) CPAP mask 11/22/2019 12:00:00 AM EDT e CW1 ([facility]) CPAP mask 11/22/2019 12:00:00 AM EDT e CW1 ([facility]) CPAP Machine 11/07/2019 12:00:00 AM EDT e CW1 ([facility]) CPAP mask 11/07/2019 12:00:00 AM EDT e CW1 ([facility]) CPAP Machine 11/07/2019 12:00:00 AM EDT e CW1 ([facility])
[2020-09-28] MEDS ORDERED: atenoloL 50 MG TAB PO ONE (19:30)
[2020-09-28] MEDS ORDERED: hydrALAZINE 20MG/ML 1ML VIAL (J0360 PER 20MG) IV STA ×2 (20:33→21:43)
[2020-09-28 20:39] VITALS: BP 217/117
[2020-09-28] MEDS ORDERED: lisinopriL 5 MG TAB PO ONE (23:00)
[2020-09-28 23:05] LABS: CK-MB VALUE MASS 1.1 NG/ML (<3.6); CPK CREATINE PHOSPHOKINASE 99 U/L (39-308); MB/CK RELATIVE INDEX 1.11 (< OR =4); TROPONIN I < 0.02 NG/ML (< 0.10)
[2020-09-28] MEDS ORDERED: ATEN50TA2 PO (23:14)
[2020-09-28 23:47] VITALS: BP 150/94
--- NOTE | 2020-09-29 16:32 | ECGEPIP ---
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
== END 2020-09-28 23:49 | disposition home or self-care (01) ==
LOC: M ED 16:02
DX: I10 Essential (primary) hypertension (principal); R07.89 Other chest pain; E78.5 Hyperlipidemia, unspecified; F17.200 Nicotine dependence, unspecified, uncomplicated; Z79.82 Long term (current) use of aspirin; Z79.899 Other long term (current) drug therapy; Z88.1 Allergy status to other antibiotic agents; Z91.89 Other specified personal risk factors, not elsewhere classified
CPT/HCPCS: 71045; 80048; 82550; 82553; 85025; 85379; 93005; 93041; 94760; 96374; 99285; J0360

== ENCOUNTER → 2020-10-16 | Outpatient (REF) | payer OTHER ==
[2020-10-16 13:48] LABS: CHOLESTEROL RISK RATIO 5.288 (<5)
[2020-10-16 14:03] LABS: HEMOGLOBIN A1c 5.1 %
[2020-10-16 18:28] LABS: TOTAL 25(OH) VITAMIN D 15.2 NG/ML (30.0-100.0)
[2020-10-16 18:30] LABS: FOLATE 8.4 NG/ML
== END ==
LOC: M SFHCADAM 10:52
PROVIDERS: ATTEND Physician Assistant
DX: E78.00 Pure hypercholesterolemia, unspecified (principal); F17.210 Nicotine dependence, cigarettes, uncomplicated; I10 Essential (primary) hypertension; E55.9 Vitamin D deficiency, unspecified; R73.09 Other abnormal glucose; D75.89 Other specified diseases of blood and blood-forming organs

== ENCOUNTER → 2020-10-16 | Outpatient (CLI) | payer OTHER ==
[2020-10-16 13:44] LABS: ALBUMIN 3.7 GM/DL (3.2-5.2); BLOOD UREA NITROGEN 12 MG/DL (7-18); CALCIUM LEVEL 9.1 MG/DL (8.5-10.1); CARBON DIOXIDE LEVEL 27 MEQ/L (21-32); CHLORIDE LEVEL 110 MEQ/L (98-107); CREATININE FOR GFR 0.76 MG/DL (0.70-1.30); GLOMERULAR FILTRATION RATE > 60.0 (>60); GLUCOSE, FASTING 93 MG/DL (70-100); PHOSPHORUS LEVEL 3.8 MG/DL (2.5-4.9); POTASSIUM SERUM 4.3 MEQ/L (3.5-5.1); SODIUM LEVEL 141 MEQ/L (136-145)
[2020-10-16 14:51] LABS: CREATININE, URINE 96.9 MG/DL; MALB URINE SIEMENS 5.2 MG/L; MAU/CREAT RATIO 5.3 MCG/MG (0.0-30.0)
== END ==
LOC: M LABDRWAD 11:16
PROVIDERS: ATTEND Internal Medicine Cardiovascular Disease
DX: I10 Essential (primary) hypertension (principal)

== ENCOUNTER → 2021-07-14 | Outpatient (REF) | payer OTHER ==
[~2021-07-14] MED LIST changes: -DOXY100C PO; +DOXY100C3 PO; +GABA-283 PO; -GABA-845 PO
[2021-07-14 17:22] LABS: ALBUMIN 3.8 GM/DL (3.2-5.2); ALT/SGPT 46 U/L (12-78); BILIRUBIN,TOTAL 0.3 MG/DL (0.2-1.0); BLOOD UREA NITROGEN 10 MG/DL (7-18); CALCIUM LEVEL 9.3 MG/DL (8.5-10.1); CARBON DIOXIDE LEVEL 29 MEQ/L (21-32); CHLORIDE LEVEL 107 MEQ/L (98-107); CREATININE FOR GFR 0.87 MG/DL (0.70-1.30); GLOMERULAR FILTRATION RATE > 60.0 (>60); GLUCOSE, FASTING 92 MG/DL (70-100); POTASSIUM SERUM 4.7 MEQ/L (3.5-5.1); SODIUM LEVEL 141 MEQ/L (136-145); TOTAL PROTEIN 7.3 GM/DL (6.4-8.2)
== END ==
LOC: M SFHCADAM 11:59
PROVIDERS: ATTEND Physician Assistant
DX: I10 Essential (primary) hypertension (principal); R73.09 Other abnormal glucose; F17.210 Nicotine dependence, cigarettes, uncomplicated

== ENCOUNTER → 2022-01-12 | Outpatient (REF) | payer OTHER ==
[2022-01-12 13:08] LABS: HEMATOCRIT 50.1 % (42.0-52.0); HEMOGLOBIN 17.1 g/dl (13.5-17.5); MEAN CORPUSCULAR HEMOGLOBIN 34.8 pg (27.0-33.0); MEAN CORPUSCULAR HGB CONC 34.1 g/dl (32.0-36.5); PLATELET COUNT, AUTOMATED 276 10^3/uL (150-450); RED BLOOD COUNT 4.91 10^6/uL (4.30-6.10); WHITE BLOOD COUNT 7.3 10^3/uL (4.0-10.0)
[2022-01-12 13:54] LABS: ALBUMIN 3.9 GM/DL (3.2-5.2); ALT/SGPT 31 U/L (12-78); BILIRUBIN,TOTAL 0.5 MG/DL (0.2-1.0); BLOOD UREA NITROGEN 6 MG/DL (7-18); CALCIUM LEVEL 8.8 MG/DL (8.5-10.1); CARBON DIOXIDE LEVEL 29 MEQ/L (21-32); CHLORIDE LEVEL 109 MEQ/L (98-107); CHOLESTEROL LEVEL 153 MG/DL (<200); CHOLESTEROL RISK RATIO 2.185 (<5); CREATININE FOR GFR 0.91 MG/DL (0.70-1.30); FREE T4 0.98 NG/DL (0.76-1.46); GLOMERULAR FILTRATION RATE > 60.0 (>60); GLUCOSE, FASTING 84 MG/DL (70-100); HDL CHOLESTEROL 70 MG/DL (>40); LDL CHOLESTEROL 68 MG/DL (<100); NON-HDL-C 83 MG/DL; POTASSIUM SERUM 3.8 MEQ/L (3.5-5.1); SODIUM LEVEL 140 MEQ/L (136-145); TOTAL 25(OH) VITAMIN D 40.8 NG/ML (30.0-100.0); TOTAL PROTEIN 7.5 GM/DL (6.4-8.2); TRIGLYCERIDES LEVEL 77 MG/DL (<150)
[2022-01-12 13:57] LABS: MALB URINE SIEMENS 25.3 MG/L; MAU/CREAT RATIO 7.5 MCG/MG (0.0-30.0)
[2022-01-12 14:33] LABS: HEMOGLOBIN A1c 4.7 %
== END ==
LOC: M SFHCADAM 11:02
PROVIDERS: ATTEND Physician Assistant
DX: I10 Essential (primary) hypertension (principal); E78.00 Pure hypercholesterolemia, unspecified; R73.09 Other abnormal glucose; F17.210 Nicotine dependence, cigarettes, uncomplicated

== ENCOUNTER 2022-08-20 17:45 | Emergency (ER) | payer OTHER ==
[~2022-08-20] VITALS: Ht 180.3 cm; Wt 80.5 kg
[2022-08-20] MEDS ORDERED: ERGO500029 PO (18:20)
[2022-08-20] MEDS ORDERED: LOSA100T45 PO (18:20)
[2022-08-20] MEDS ORDERED: AMLO1TAB25 PO (18:20)
[2022-08-20 18:36] LABS: BASO # 0.1 10^3/uL (0.0-0.2); BASO % 0.5 % (0.0-1.0); EOS # 0.2 10^3/uL (0.0-0.5); EOS % 2.1 % (0.0-3.0); HEMATOCRIT 38.3 % (42.0-52.0); HEMOGLOBIN 13.2 g/dl (13.5-17.5); LYMPH # 1.8 10^3/uL (1.5-5.0); LYMPH % 17.3 % (24.0-44.0); MEAN CORPUSCULAR HEMOGLOBIN 34.3 pg (27.0-33.0); MEAN CORPUSCULAR HGB CONC 34.5 g/dl (32.0-36.5); MEAN CORPUSCULAR VOLUME 99.5 fl (80.0-96.0); MONO # 1.2 10^3/uL (0.0-0.8); MONO % 11.7 % (2.0-8.0); NEUTROPHILS # 7.1 10^3/uL (1.5-8.5); NEUTROPHILS % 68.1 % (36.0-66.0); PLATELET COUNT, AUTOMATED 246 10^3/uL (150-450); RED BLOOD COUNT 3.85 10^6/uL (4.30-6.10); WHITE BLOOD COUNT 10.5 10^3/uL (4.0-10.0)
[2022-08-20 18:47] LABS: INR 0.91; PROTHROMBIN TIME 12.4 SECONDS (12.5-14.5)
[2022-08-20 18:48] LABS: PARTIAL THROMBOPLASTIN TIME 25.4 SECONDS (24.8-34.2)
[2022-08-20 19:05] LABS: ALBUMIN 3.5 G/DL (3.2-5.2); BILIRUBIN,DIRECT 0.1 MG/DL (<0.4); BILIRUBIN,TOTAL 0.4 MG/DL (0.3-1.2); CK-MB VALUE MASS 88.2 NG/ML (<3.6); TOTAL PROTEIN 6.5 G/DL (5.7-8.2)
[2022-08-20 19:06] LABS: BLOOD UREA NITROGEN 10 MG/DL (9-23); CALCIUM LEVEL 8.3 MG/DL (8.5-10.1); CARBON DIOXIDE LEVEL 24 MMOL/L (20-31); CHLORIDE LEVEL 108 MMOL/L (98-107); CREATININE FOR GFR 0.81 MG/DL (0.70-1.30); GLOMERULAR FILTRATION RATE > 60.0 (>60); GLUCOSE, FASTING 95 MG/DL (60-100); POTASSIUM SERUM 3.9 MMOL/L (3.5-5.1); SODIUM LEVEL 142 MMOL/L (136-145)
[2022-08-20 19:20] LABS: CPK CREATINE PHOSPHOKINASE 2087 U/L (46-171); MB/CK RELATIVE INDEX 4.22 (< OR =4)
[2022-08-20] MEDS ORDERED: ISOVUE-370 76% 100ML VIAL As Ordered ONE (19:28)
[2022-08-20] MEDS ORDERED: MORPHINE 4 MG/ML 1ML VIAL IV ONE (19:35)
[2022-08-20] MEDS ORDERED: ASPIRIN 81MG CHEW TABLET PO ONE (20:00)
[2022-08-20] MEDS: NITROGLYCERIN 0.4MG SUBL TABLET SL PRN ×3 (20:17→20:59)
[2022-08-20] MEDS ORDERED: HEPARIN DRIP 25,000 UNITS in IV 1 EA IV SCH (20:30)
[2022-08-20 20:59] VITALS: BP 117/74
[2022-08-20 21:03] LABS: AMPHETAMINES LEVEL URINE NEGATIVE (NEGATIVE); BARBITURATES URINE NEGATIVE (NEGATIVE); BENZODIAZEPINES URINE NEGATIVE (NEGATIVE); CANNABINOIDS URINE NEGATIVE (NEGATIVE); METHADONE URINE NEGATIVE (NEGATIVE); OPIATES URINE NEGATIVE (NEGATIVE); PHENCYCLIDINE URINE NEGATIVE (NEGATIVE)
[2022-08-20 21:04] LABS: COCAINE METABOLITE URINE POSITIVE (NEGATIVE)
[2022-08-20 21:08] LABS: RSV AMPLIFICATION NEGATIVE (NEGATIVE)
[2022-08-20 21:36] VITALS: BP 145/84
[2022-08-20 21:42] LABS: CK-MB VALUE MASS 63.9 NG/ML (<3.6)
[2022-08-20 22:02] LABS: MB/CK RELATIVE INDEX 3.12 (< OR =4)
== END 2022-08-20 21:38 | disposition short-term general hospital (02) ==
LOC: M ED 17:45
DX: I21.4 Non-ST elevation (NSTEMI) myocardial infarction (principal); R94.5 Abnormal results of liver function studies; R00.1 Bradycardia, unspecified; I25.2 Old myocardial infarction; I10 Essential (primary) hypertension; E78.5 Hyperlipidemia, unspecified; K21.9 Gastro-esophageal reflux disease without esophagitis; F17.200 Nicotine dependence, unspecified, uncomplicated; F12.10 Cannabis abuse, uncomplicated; F10.10 Alcohol abuse, uncomplicated; Z79.811 Long term (current) use of aromatase inhibitors; Z79.899 Other long term (current) drug therapy

== ENCOUNTER → 2022-10-11 | Outpatient (REF) | payer OTHER ==
[~2022-10-11] MED LIST changes: +AMLO1TAB25 PO; +ERGO500029 PO; +LOSA100T45 PO
== END ==
LOC: M SFHCADAM 12:49
DX: Z53.9 Procedure and treatment not carried out, unspecified reason (principal)

== ENCOUNTER → 2024-06-25 | Outpatient (REF) | payer OTHER, MEDICAID ==
[~2024-06-25] MED LIST changes: -GABA-283 PO; +GABA-284 PO; -LOSA100T45 PO; +LOSA100T46 PO
[2024-06-25 18:06] LABS: BASO # 0.1 10^3/uL (0.0-0.2); BASO % 1.7 % (0.0-1.0); EOS # 0.4 10^3/uL (0.0-0.5); EOS % 5.5 % (0.0-3.0); HEMATOCRIT 49.4 % (42.0-52.0); HEMOGLOBIN 16.3 g/dl (13.5-17.5); LYMPH # 1.5 10^3/uL (1.5-5.0); LYMPH % 23.3 % (24.0-44.0); MEAN CORPUSCULAR VOLUME 103.1 fl (80.0-96.0); MONO # 0.6 10^3/uL (0.0-0.8); MONO % 9.3 % (2.0-8.0); NEUTROPHILS # 3.8 10^3/uL (1.5-8.5); NEUTROPHILS % 59.9 % (36.0-66.0); PLATELET COUNT, AUTOMATED 323 10^3/uL (150-450); RED BLOOD COUNT 4.79 10^6/uL (4.30-6.10); WHITE BLOOD COUNT 6.3 10^3/uL (4.0-10.0)
[2024-06-25 18:10] LABS: ALBUMIN 3.6 G/DL (3.2-5.2); ALKALINE PHOSPHATASE 98 U/L (40-129); ALT/SGPT 25 U/L (7.0-40); AST/SGOT 13 U/L (<34); BILIRUBIN,TOTAL 0.3 MG/DL (0.3-1.2); BLOOD UREA NITROGEN 9 MG/DL (9-23); CALCIUM LEVEL 9.6 MG/DL (8.5-10.1); CARBON DIOXIDE LEVEL 29 MMOL/L (20-31); CHLORIDE LEVEL 107 MMOL/L (98-107); CHOLESTEROL LEVEL 177 MG/DL (<200); CHOLESTEROL RISK RATIO 2.87 (<5); CREATININE FOR GFR 0.81 MG/DL (0.70-1.30); GLOMERULAR FILTRATION RATE > 60.0 (>60); GLUCOSE, FASTING 95 MG/DL (60-100); HDL CHOLESTEROL 61.5 MG/DL (>40); LDL CHOLESTEROL 103.1 MG/DL (<100); NON-HDL-C 115.5 MG/DL; SODIUM LEVEL 140 MMOL/L (136-145); TOTAL PROTEIN 6.9 G/DL (5.7-8.2); TRIGLYCERIDES LEVEL 62 MG/DL (<150)
[2024-06-25 18:11] LABS: THYROID STIMULATING HORMONE 1.837 uIU/ML (0.55-4.78)
[2024-06-25 18:12] LABS: FREE T4 1.04 NG/DL (0.89-1.76); TOTAL 25(OH) VITAMIN D 16.4 NG/ML (20.0-100.0); VITAMIN B12 LEVEL 313 PG/ML (211-911)
[2024-06-25 18:16] LABS: FOLATE 7.3 NG/ML (>5.4)
== END ==
LOC: M SFHCADAM 11:13
PROVIDERS: ATTEND Physician Assistant
DX: F17.210 Nicotine dependence, cigarettes, uncomplicated (principal); E55.9 Vitamin D deficiency, unspecified; F10.11 Alcohol abuse, in remission; I25.10 Atherosclerotic heart disease of native coronary artery without angina pectoris; I10 Essential (primary) hypertension; R73.09 Other abnormal glucose

== ENCOUNTER → 2024-09-16 | Outpatient (CLI) | payer OTHER | LOC: M CARPUL 16:13 | PROVIDERS: ATTEND Physician Assistant | DX: I27.20 Pulmonary hypertension, unspecified (principal); I50.30 Unspecified diastolic (congestive) heart failure; I51.7 Cardiomegaly ==

== ENCOUNTER → 2024-10-09 | Outpatient (CLI) | payer OTHER | LOC: M SLEEP HO 12:23 | PROVIDERS: ATTEND Nurse Practitioner Adult Health | DX: G47.33 Obstructive sleep apnea (adult) (pediatric) (principal) ==

== ENCOUNTER → 2024-10-22 | Outpatient (CLI) | payer OTHER ==
[2024-10-22 12:59] LABS: ALBUMIN 4.2 G/DL (3.2-5.2); ALKALINE PHOSPHATASE 101 U/L (40-129); ALT/SGPT 55 U/L (7.0-40); AST/SGOT 25 U/L (<34); BILIRUBIN,TOTAL 0.5 MG/DL (0.3-1.2); BLOOD UREA NITROGEN 10 MG/DL (9-23); CALCIUM LEVEL 9.7 MG/DL (8.5-10.1); CARBON DIOXIDE LEVEL 28 MMOL/L (20-31); CHLORIDE LEVEL 105 MMOL/L (98-107); CHOLESTEROL LEVEL 162 MG/DL (<200); CHOLESTEROL RISK RATIO 2.49 (<5); CREATININE FOR GFR 0.96 MG/DL (0.70-1.30); GLOMERULAR FILTRATION RATE > 60.0 (>60); GLUCOSE, FASTING 98 MG/DL (60-100); HDL CHOLESTEROL 64.9 MG/DL (>40); LDL CHOLESTEROL 71.7 MG/DL (<100); NON-HDL-C 97.1 MG/DL; POTASSIUM SERUM 4.7 MMOL/L (3.5-5.1); SODIUM LEVEL 145 MMOL/L (136-145); TOTAL PROTEIN 7.5 G/DL (5.7-8.2); TRIGLYCERIDES LEVEL 127 MG/DL (<150)
== END ==
LOC: M LAB 11:40
PROVIDERS: ATTEND Physician Assistant
DX: E78.5 Hyperlipidemia, unspecified (principal)

== ENCOUNTER → 2024-10-31 | Outpatient (CLI) | payer OTHER ==
[2024-10-31 15:16] LABS: BLOOD UREA NITROGEN 13 MG/DL (9-23); CALCIUM LEVEL 9.1 MG/DL (8.5-10.1); CARBON DIOXIDE LEVEL 28 MMOL/L (20-31); CHLORIDE LEVEL 105 MMOL/L (98-107); CREATININE FOR GFR 0.79 MG/DL (0.70-1.30); GLOMERULAR FILTRATION RATE > 60.0 (>60); GLUCOSE, FASTING 85 MG/DL (60-100); POTASSIUM SERUM 4.6 MMOL/L (3.5-5.1); SODIUM LEVEL 140 MMOL/L (136-145)
== END ==
LOC: M LAB 13:57
PROVIDERS: ATTEND Physician Assistant
DX: I25.5 Ischemic cardiomyopathy (principal)

== ENCOUNTER → 2024-12-25 | Outpatient (CLI) | payer OTHER ==
[2024-12-25 14:09] LABS: BLOOD UREA NITROGEN 13 MG/DL (9-23); CARBON DIOXIDE LEVEL 27 MMOL/L (20-31); CHLORIDE LEVEL 108 MMOL/L (98-107); CREATININE FOR GFR 0.82 MG/DL (0.70-1.30); GLOMERULAR FILTRATION RATE > 90.0 (>60); GLUCOSE, FASTING 103 MG/DL (60-100); POTASSIUM SERUM 4.7 MMOL/L (3.5-5.1); SODIUM LEVEL 142 MMOL/L (136-145)
== END ==
LOC: M LAB 13:18
PROVIDERS: ATTEND Physician Assistant
DX: I10 Essential (primary) hypertension (principal)

== ENCOUNTER 2025-02-21 11:04 | Day surgery (SDC) | payer OTHER ==
[~2025-02-21] VITALS: Ht 177.8 cm; Wt 108.9 kg
[~2025-02-21 11:04] MED LIST changes: +ASPI81CH48 PO; +ATOR80TA59 PO; +CLOP75TA2 PO; +METO1TAB32 PO; +SPIR-10 PO
[2025-02-21] MEDS ORDERED: MIDAZOLAM INJ 2 MG/2 ML VIAL As Ordered ONE (11:51)
[2025-02-21] MEDS ORDERED: ROCURONIUM BROMIDE 50MG/5ML VIAL As Ordered ONE (11:52)
[2025-02-21] MEDS ORDERED: LIDOCAINE 2% 100 MG/5 ML SDV (FOR ANES.) As Ordered ONE (11:56)
[2025-02-21] MEDS ORDERED: ONDANSETRON 4MG 2ML VIAL As Ordered ONE (11:56)
[2025-02-21] MEDS: dexAMETHasone 4 MG/ML 1 ML VIAL As Ordered ONE (12:14)
[2025-02-21] MEDS: ceFAZolin SOD 2 GM IV ONCE IV ONE (12:50)
[2025-02-21] MEDS: LIDOCAINE 2% MDV 20 ML VIAL As Ordered ONE (12:53)
[2025-02-21] MEDS ORDERED: SUGAMMADEX SODIUM 500 MG/5 ML VIAL As Ordered ONE (12:58)
[2025-02-21] MEDS ORDERED: dexmedeTOMIDine (4 MCG/ML) 200 MCG/50 ML BTL As Ordered ONE (12:58)
[2025-02-21] MEDS: GENTAMICIN SULF 80 MG/2 ML VIAL As Ordered ONE (13:30)
[2025-02-21] MEDS ORDERED: ONDANSETRON 4MG 2ML VIAL IV PRN (14:00)
[2025-02-21] MEDS: HYDROMORPHONE HCL 0.5 MG/0.5 ML SYRINGE IV PRN (14:36)
[2025-02-21 15:00] VITALS: BP 159/99; TEMP 97; O2SAT 98
== END 2025-02-21 15:25 | disposition home or self-care (01) ==
LOC: M SDC 11:04
PROVIDERS: ATTEND Podiatrist
DX: D21.22 Benign neoplasm of connective and other soft tissue of left lower limb, including hip (principal); Z79.82 Long term (current) use of aspirin; Z79.899 Other long term (current) drug therapy; Z79.02 Long term (current) use of antithrombotics/antiplatelets; I10 Essential (primary) hypertension; E78.00 Pure hypercholesterolemia, unspecified; I25.2 Old myocardial infarction; Z95.5 Presence of coronary angioplasty implant and graft; G47.30 Sleep apnea, unspecified; Z88.1 Allergy status to other antibiotic agents; F17.290 Nicotine dependence, other tobacco product, uncomplicated; Z91.048 Other nonmedicinal substance allergy status
CPT/HCPCS: 28060; 88305; J0665; J0690; J1100; J1171; J1580; J2250; J2405; J3010

== ENCOUNTER → 2025-06-03 | Outpatient (REF) | payer MEDICAID, OTHER ==
[2025-06-03 14:08] LABS: BASO # 0.1 10^3/uL (0.0-0.2); BASO % 0.9 % (0.0-1.0); EOS # 0.3 10^3/uL (0.0-0.5); EOS % 3.7 % (0.0-3.0); LYMPH # 2.7 10^3/uL (1.5-5.0); LYMPH % 29.4 % (24.0-44.0); MONO # 0.7 10^3/uL (0.0-0.8); MONO % 8.0 % (2.0-8.0); NEUTROPHILS # 5.3 10^3/uL (1.5-8.5); NEUTROPHILS % 57.5 % (36.0-66.0); PLATELET COUNT, AUTOMATED 374 10^3/uL (150-450)
[2025-06-03 14:18] LABS: ESTIMATED AVERAGE GLUCOSE 134.0 MG/DL (60-110)
[2025-06-03 14:33] LABS: ALT/SGPT 65 U/L (7.0-40); AST/SGOT 33 U/L (<34); CALCIUM LEVEL 9.3 MG/DL (8.5-10.1); CARBON DIOXIDE LEVEL 29 MMOL/L (20-31); CHLORIDE LEVEL 102 MMOL/L (98-107); CHOLESTEROL LEVEL 185 MG/DL (<200); CHOLESTEROL RISK RATIO 3.11 (<5); CREATININE FOR GFR 0.96 MG/DL (0.70-1.30); GLOMERULAR FILTRATION RATE > 90.0 (>60); LDL CHOLESTEROL 100.8 MG/DL (<100); NON-HDL-C 125.6 MG/DL; POTASSIUM SERUM 4.3 MMOL/L (3.5-5.1); SODIUM LEVEL 141 MMOL/L (136-145); TRIGLYCERIDES LEVEL 124 MG/DL (<150)
[2025-06-03 14:34] LABS: FREE T4 0.64 NG/DL (0.89-1.76)
== END ==
LOC: M SFHCADAM 11:19
PROVIDERS: ATTEND Physician Assistant
DX: E78.00 Pure hypercholesterolemia, unspecified (principal); E55.9 Vitamin D deficiency, unspecified; I10 Essential (primary) hypertension; F17.218 Nicotine dependence, cigarettes, with other nicotine-induced disorders; I25.10 Atherosclerotic heart disease of native coronary artery without angina pectoris

== ENCOUNTER → 2025-06-18 | Outpatient (REF) | payer MEDICAID, OTHER ==
[2025-06-18 18:16] LABS: FREE T4 0.52 NG/DL (0.89-1.76)
== END ==
LOC: M SFHCADAM 13:04
PROVIDERS: ATTEND Physician Assistant
DX: R79.89 Other specified abnormal findings of blood chemistry (principal)